=== PATIENT | female | born 1980 | race Caucasian/White ===

== ENCOUNTER → 2020-10-26 | Outpatient (CLI) | payer OTHER ==
--- NOTE | 2020-10-26 21:37 | RAD ---
MR#: [id number] Date of Study: 10/26/2020 Ordering Physician: MINH HOPPER, Referring Physician: MINH HOPPER, Tech: Rhea Boyd RDMS, RVT, RTR APPROVED REPORT Patient Location: OUT-PATIENT Exam Type: Ankle to Brachial Index Indications Leg Pain Pressures/Indices RightABI LeftABI Brachial 255nlVp7.2Brachial 534euMe9.2 Ankle(PT) 132mmHgAnkle(PT) 128mmHg Ankle(DP) 139mmHgAnkle(DP) 138mmHg Critical Notification Critical Value: No <Conclusion> 1. Normal bilateral RENNY. Signed by : Minh Hopper, Electronically Approved : 10/26/2020 21:37:44
--- NOTE | 2020-10-26 21:37 | RAD ---
MR#: [id number] Date of Study: 10/26/2020 Ordering Physician: MINH HOPPER, Referring Physician: MINH HOPPER, Tech: Rhea Boyd RDMS, RVT, RTR APPROVED REPORT Patient Location : OUT-PATIENT Indications Lower Extremity Pain : Bilateral Findings Limited grayscale images of the bilateral saphenofemoral junctions are grossly unremarkable. The right great saphenous vein measures 2.4 mm and the left great saphenous vein measures 3.5 mm. Bilateral greater and lesser saphenous veins do not reveal any evidence of reflux. Critical Notification Critical Value: No <Conclusion> 1. Negative for reflux in the bilateral greater and lesser saphenous veins. Signed by : Minh Hopper, Electronically Approved : 10/26/2020 21:37:20
--- NOTE | 2020-10-26 21:39 | RAD ---
MR#: [id number] Date of Study: 10/26/2020 Ordering Physician: MINH HOPPER, Referring Physician: MINH HOPPER, Tech: Rhea Boyd, CHACORTA, RVT, RTR APPROVED REPORT Patient Location: OUT-PATIENT Indications Leg Pain VELOCITY AND DOPPLER WAVEFORM ANALYSIS RIGHT cm/secWaveformSeverity LEFT cm/secWaveform Severity pCFA 154.6pCFA 151.5 Prof Fem Art. 98.3Prof Fem Art. 100.0 Fem Art Prox. 99.2Fem Art Prox. 109.9 Fem Art Mid. 125.6Fem Art Mid. 136.3 Fem Art Dist. 114.9Fem Art Dist. 122.3 Pop Art(AK) 59.0Pop Art(AK) 76.0 C[employer] INSTALLER Prox. 44.5PTA Prox. 51.5 CORK INSULATION INSTALLER Dist. 58.2PTA Dist. 59.4 Per Art Prox. 84.5Per Art Prox. 81.5 KATHERINE Prox. 66.5ATA Prox. 58.4 DPA 47DPA 55 Findings Grayscale images demonstrate mild diffuse atherosclerotic plaque. Bilateral lower extremity waveforms are mostly triphasic in nature. There is three-vessel runoff bel ow the knee bilaterally. No significant focal stenosis is identified. Critical Notification Critical Value: No <Conclusion> 1. No significant bilateral lower extremity arterial disease Signed by : Minh Hopper, Electronically Approved : 10/26/2020 21:39:02
--- NOTE | 2020-10-26 22:18 | CARD ---
MR#: [id number] Date of Study: 10/26/2020 Ordering Physician: MINH HOPPER, Referring Physician: MINH HOPPER, Tech: Melva Erwin [facility] APPROVED REPORT EXAM: Two-dimensional and M-mode echocardiogram with Doppler and color Doppler. INDICATION Palpitations 2D DIMENSIONS RVDd2.8 (2.9-3.5cm)Left Atrium(2D)3.4 (1.6-4.0cm) IVSd0.7 (0.7-1.1cm)Aortic Root(2D)2.7 (2.0-3.7cm) LVDd4.3 (3.9-5.9cm)LVOT Diameter2.0 (1.8-2.4cm) PWd0.7 (0.7-1.1cm)LVDs2.7 (2.5-4.0cm) FS (%) 37.8 %SV57.1 ml LVEF(%)68.2 (>50%) Aortic Valve AoV Peak José Manuel.129.4cm/sAoV VTI25.2cm AO Peak GR.6.7mmHgLVOT Peak José Manuel.108.6cm/s AO Mean GR.3mmHgAVA (VMAX)2.77cm2 Mitral Valve MV E Qnyugsea85.3cm/sMV DECEL [id number] MV A Gbzzcmcp40.7cm/sE/A Ratio1.4 Pulmonary Valve PV Peak Jjbxfsgr383.5cm/s Tricuspid Valve TR P. Torkcmxm908gf/sTR Peak Gr.20mmHg LEFT VENTRICLE The left ventricle is normal size. There is normal left ventricular wall thickness. The left ventricu lar systolic function is normal and the ejection fraction is within normal range. Estimated ejection fraction 60-65%. There is normal LV segmental wall motion. The left ventricular diastolic function an d filling is normal for age. RIGHT VENTRICLE The right ventricle is normal size. There is normal right ventricular wall thickness. The right ventr icular systolic function is normal. ATRIA The left atrium size is normal. The right atrium size is normal. The interatrial septum is intact wit h no evidence for an atrial septal defect or patent foramen ovale as noted on 2-D or Doppler imaging. AORTIC VALVE The aortic valve is normal in structure and function. Doppler and Color Flow revealed no significant aortic regurgitation. There is no significant aortic valvular stenosis. MITRAL VALVE The mitral valve is normal in structure and function. There is no evidence of mitral valve prolapse. There is no mitral valve stenosis. Doppler and Color-flow revealed trace mitral regurgitation. TRICUSPID VALVE The tricuspid valve is normal in structure and function. Doppler and Color Flow revealed trace tricus pid regurgitation. Estimated PAP 22 mmHg. There is no tricuspid valve stenosis. PULMONIC VALVE Doppler and Color Flow revealed no pulmonic valvular regurgitation. There is no pulmonic valvular baltazar nosis. GREAT VESSELS The aortic root is normal in size. The ascending aorta is normal in size. The IVC is normal in size a nd collapses >50% with inspiration. PERICARDIAL EFFUSION There is no evidence of significant pericardial effusion. Critical Notification Critical Value: No <Conclusion> The left ventricular systolic function is normal and the ejection fraction is within normal range. E stimated ejection fraction 60-65%. There is normal LV segmental wall motion. Signed by : Minh Hopper, Electronically Approved : 10/26/2020 22:17:36
== END ==
LOC: ECHO 09:53
PROVIDERS: ATTEND Internal Medicine Cardiovascular Disease
DX: R06.00 Dyspnea, unspecified (principal)
CPT/HCPCS: 93306; 93922; 93925; 93970